=== PATIENT | male | born 2000 | race Caucasian/White ===

== ENCOUNTER 2023-01-25 19:46 | Emergency (ER) | payer OTHER ==
[~2023-01-25] VITALS: Ht 185.4 cm; Wt 96.5 kg
[2023-01-25 19:47] VITALS: BP 125/60
[2023-01-25] MEDS ORDERED: DERMABOND TOPICAL SKIN ADHESIVE TOP ONE (22:05)
== END 2023-01-25 22:46 | disposition home or self-care (01) ==
LOC: M ED 19:46
DX: S61.412A Laceration without foreign body of left hand, initial encounter (principal); Y28.9XXA Contact with unspecified sharp object, undetermined intent, initial encounter; F10.10 Alcohol abuse, uncomplicated; Z88.0 Allergy status to penicillin

== ENCOUNTER 2023-02-15 16:52 | Emergency (ER) | payer OTHER ==
[~2023-02-15] VITALS: Ht 193 cm; Wt 96.7 kg
[2023-02-15] MEDS ORDERED: DERMABOND TOPICAL SKIN ADHESIVE TOP ONE (18:55)
[2023-02-15 19:10] VITALS: BP 155/74
== END 2023-02-15 19:11 | disposition home or self-care (01) ==
LOC: M ED 16:52
DX: S61.211A Laceration without foreign body of left index finger without damage to nail, initial encounter (principal); W26.0XXA Contact with knife, initial encounter; Y92.009 Unspecified place in unspecified non-institutional (private) residence as the place of occurrence of the external cause; Z88.0 Allergy status to penicillin